=== PATIENT | male | born 1990 | race Caucasian/White ===

== ENCOUNTER 2022-08-09 07:45 | Emergency (ER) | payer SELFPAY ==
[2022-08-09] MEDS ORDERED: Ondansetron 4 MG/2 ML SDV IVPUSH ONE (08:21)
[2022-08-09] MEDS ORDERED: Ketorolac 30 MG/ML SDV IVPUSH ONE ×2 (08:21→09:09)
[2022-08-09] MEDS ORDERED: Lactated Ringers 1,000 ML IV STA (08:21)
[2022-08-09 09:00] LABS: CARBON DIOXIDE,CO2 26.9 mmol/L (21.0-32.0); POTASSIUM,K 3.6 mmol/L (3.5-5.1)
[2022-08-09] MEDS ORDERED: Tamsulosin 0.4 MG Cap.ER PO ONE (09:09)
[2022-08-09] MEDS ORDERED: Acetaminophen/HYDROcodone 325-5 MG Tab PO ONE (10:12)
== END 2022-08-09 10:30 | disposition home or self-care (01) ==
LOC: MW.ED 07:45
DX: N13.2 Hydronephrosis with renal and ureteral calculous obstruction (principal)
CPT/HCPCS: 36415; 74176; 80053; 81001; 83690; 85025; 96361; 96374; 96375; 96376; 99284; A9270; J1885; J2405; J7120